=== PATIENT | male | born 1945 | race Caucasian/White ===

== ENCOUNTER → 2017-10-01 11:00 | Outpatient (CLI) | payer OTHER ==
[2013-01-03 12:38] VITALS: BMI 40.3
[~2017-10-01 11:00] MED LIST: COMBIVENT RESPIM4 GM INH; COMBIVENT RESPIM4 GM PO; NEXIUM40 MG PO; PLAQUENIL200 MG PO; PROAIR HFA8.5 GM INH
== END | disposition home or self-care (01) ==
LOC: D.RAD 08:00
DX: M13.80 Other specified arthritis, unspecified site (principal)